=== PATIENT | female | born 1970 | race Two or more races ===

== ENCOUNTER 2018-05-22 15:45 | Outpatient (CLI) | payer BC | END 2018-05-22 23:59 | disposition home or self-care (01) | LOC: RAD 15:45 | PROVIDERS: ATTEND Family Medicine | DX: M25.522 Pain in left elbow (principal) | CPT/HCPCS: 73070-TC ==

== ENCOUNTER 2018-08-07 07:39 | Outpatient (CLI) | payer BC | END 2018-08-07 23:59 | disposition home or self-care (01) | LOC: RAD 07:39 | PROVIDERS: ATTEND Family Medicine | DX: M47.892 Other spondylosis, cervical region (principal); M25.512 Pain in left shoulder | CPT/HCPCS: 72040-TC; 73030-TC ==

== ENCOUNTER 2019-12-09 12:26 | Emergency (ER) | payer BC, OTHER ==
[~2019-12-09] VITALS: Ht 152.4 cm; Wt 59.0 kg
[2019-12-09 13:01] VITALS: BP 134/77
[2019-12-09] MEDS ORDERED: IBUPROFEN 600 MG TABLET PO ONE (13:30)
== END 2019-12-09 13:20 | disposition home or self-care (01) ==
LOC: ER 12:26
DX: S76.812A Strain of other specified muscles, fascia and tendons at thigh level, left thigh, initial encounter (principal); Z98.890 Other specified postprocedural states; W18.39XA Other fall on same level, initial encounter; Y93.01 Activity, walking, marching and hiking; Y92.89 Other specified places as the place of occurrence of the external cause; Y99.8 Other external cause status